=== PATIENT | female | born 1955 | race Hispanic/Latino ===

== ENCOUNTER 2017-10-13 08:12 | Emergency (ER) | payer OTHER, BC ==
[2017-10-13 08:12] VITALS: BMI 27.1
[2017-10-13 08:22] VITALS: RESP 18; TEMP 97.3
[2017-10-13] MEDS ORDERED: Naproxen 550 mg Tab PO STA (08:23)
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
[2017-10-13 09:46] VITALS: BP 132/78; PULSE 88; O2SAT 99
== END 2017-10-13 09:45 | disposition home or self-care (01) ==
LOC: ED 08:12
DX: S52.615A Nondisplaced fracture of left ulna styloid process, initial encounter for closed fracture (principal); S63.90XA Sprain of unspecified part of unspecified wrist and hand, initial encounter; V47.5XXA Car driver injured in collision with fixed or stationary object in traffic accident, initial encounter; W22.11XA Striking against or struck by driver side automobile airbag, initial encounter; Y92.410 Unspecified street and highway as the place of occurrence of the external cause